=== PATIENT | male | born 1980 | race Caucasian/White ===

== ENCOUNTER 2017-03-07 12:36 | Emergency (ER) | payer MEDICAID ==
[2017-03-07 12:48] VITALS: BP 163/90
[2017-03-07] MEDS ORDERED: TETRACAINE HCL 150 DROP BTL ONE (13:04)
[2017-03-07] MEDS: TETRACAINE HCL 150 DROP BTL LEFTEYE SCH ×3 (13:05→13:17)
--- OUTSIDE RECORDS SUMMARY | 2017-03-07 13:27 | XMS REPORT | Continuity of Care Document ---
:1980 Author Organization [facility] [place] [address] Care Team Providers Name Role Phone Unavailable Primary Care Provider Unavailable Source Comments This disclosure is being made pursuant to the e[employer] program and maynot contain all information available regarding this patient.[facility] Active Allergies and Adverse Reactions Not on File Current Medications Be aware that medications may not be up to date as of this document. Alwaysverify current medications with the patient. Not on file Active Problems Not on file Social History Tobacco Use Types Packs/Day Years Used Date Never Assessed Plan of Care Health Maintenance Due Date Last Done Comments Retired-Pertussis Vaccine Adult 1997 Retired-Tetanus Vaccine Adult 1997 Retired-INFLUENZA VACCINE 07/31/2015 Results from Last 3 Months Not on file
[2017-03-07] MEDS ORDERED: DIPHTH,PERTUSS(ACELL),TET VAC 0.5 ML VIAL IM ONE ×2 (13:47→13:52)
--- NOTE | 2017-03-07 13:53 | ERNOTE ---
ENT HPI Date of Service: 03/07/17 Presenting Symptoms: eye pain Time Seen by Provider: 03/07/17 13:00 Source: patient Exam Limitations: no limitations - Immun/Allergies/Home Medications Immunizations: IMMUNIZATION HX Immunizations Up to Date Yes History of Influenza Vaccine No Allergies/Adverse Reactions: Allergies Allergy/AdvReac Type Severity Reaction Status Date / Time No Known Allergies Allergy Unverified 03/07/17 12:48 Home Medications: HOME MEDICATIONS Sulfacetamide Sodium [Sulf-10 Ophthalmic Solution] 2 drop LEFTEYE Q3H #15 ml 07/16 [Last Taken Unknown] - History of Present Illness Narrative: Yesterday was out hunting arrowheads. He turned, and a branch caught him in the left eye. He blinked a few times, and then didn't have much trouble until four hours later, when his left eye really began to hurt. He obtained steroid and NSAID eye drops from a family member and used them. The pain got better. This morning, he still has pain and also a foreign body sensation in his left eye. In addition, his eye lids were stuck shut with purulent material. Severity: Present: moderate ENT Location: Present: eye (L) Prearrival Treatment: Present: other Modifying Factors - Improves: Reports: medication Modifying Factors - Worsens: Reports: nothing Associated Symptoms - ENT: Reports: denies symptoms Prior Treament: Denies: recently seen, currently on antibiotics Review of Systems - Review of Systems Constitutional: Present: no symptoms reported EYE: Present: see HPI ENT: Present: no symptoms reported Respiratory: Present: no symptoms reported Cardiology: Present: no symptoms reported Gastrointestinal/Abdominal: Present: no symptoms reported Genitourinary: Present: no symptoms reported Musculoskeletal: Present: no symptoms reported Skin: Present: no symptoms reported Neurological: Present: no symptoms reported Endocrine: Present: no symptoms reported Hematologic/Lymphatic: Present: no symptoms reported Psych: Present: no symptoms reported All Other Systems: All systems neg except as marked - Patient's Past Medical History Patient History - Medical: No pertinent hx Patient History - Cardiac/Respiratory: Hypertension Patient History - Cancer: No Hx of Cancer Patient History - Surgical Procedures: No surgical history - Social History Smoking Status: Current every day smoker Have you smoked in the past 12 months: Yes - Immunizations Immunizations Up to Date: Yes History of Influenza Vaccine: No Physical Exam - Physical Exam General Appearance: Present: wd/wn, alert, no apparent distress Eye Exam: Normal inspection: right, EOMI: right, Other: left - slight conjunctivitis, with opthalmoscope, fairly large corneal abrasion, perhaps 2 mm diameter, irregularly shaped. no foreign body seen, none under lids. Ears, Nose, Throat: Present: normal ENT inspection Neck: Present: normal inspection Respiratory: Present: no respiratory distress Cardiovascular/Chest: Present: regular rate, rhythm Extremity Exam: Present: normal inspection, no edema Neurological Exam: Present: alert, oriented, normal mood/affect Skin Exam: Present: normal color, warm/dry ED Progress - Vital Signs Patient's Vital Signs:: I have reviewed the patient's vital signs. Vital Signs: Vital Signs 03/07/17 12:37 Temperature 37.1 C Pulse Rate 126 H Respiratory 12 Rate Blood Pressure 163/90 O2 Sat by Pulse 100 Oximetry - Progress/Reassessment Chief Complaint: Eye Injury/Trauma Procedures Eye Location: left eye Tetracaine Drops Administered: Yes Eye - Cornea: Left: abrasion Departure Clinical Impression: Corneal abrasion, left Qualifiers: Encounter type: initial encounter Qualified Code(s): S05.02XA - Injury of conjunctiva and corneal abrasion without foreign body, left eye, initial encounter - Departure Disposition: Home self-care Condition: Good Instructions: Corneal Abrasion, [id number] Additional Instructions: Followup with doctor of your choice Thursday. Return to the ER if worse. Use cold compresses and rest in a dark quiet room. Prescriptions: Sulfacetamide Sodium [Sulf-10 Ophthalmic Solution] 2 drop LEFTEYE Q3H #15 ml
== END 2017-03-07 13:58 | disposition home or self-care (01) ==
LOC: ER 12:36
DX: S05.02XA Injury of conjunctiva and corneal abrasion without foreign body, left eye, initial encounter (principal); X58.XXXA Exposure to other specified factors, initial encounter; Y93.89 Activity, other specified; Y92.9 Unspecified place or not applicable; Y99.8 Other external cause status; Z23 Encounter for immunization